=== PATIENT | female | born 1985 | race Caucasian/White ===

== ENCOUNTER 2016-10-18 16:10 | Emergency (ER) | payer OTHER ==
[~2016-10-18] VITALS: Ht 154.9 cm; Wt 68.2 kg
[2016-10-18 16:38] VITALS: BP 147/90
== END 2016-10-18 17:20 | disposition home or self-care (01) ==
LOC: EMS 16:13
DX: N61.0 Mastitis without abscess (principal)
CPT/HCPCS: 99283